=== PATIENT | female | born 1935 | race Caucasian/White ===

== ENCOUNTER 2022-03-09 14:00 | Inpatient (IN) | payer OTHER ==
[2022-03-09 14:14] VITALS: BMI 35.9
[2022-03-09 15:57] LABS: BASO % 0.5 % (0-2.0); HEMATOCRIT 37.8 % (32.4-45.2); HEMOGLOBIN 13.1 GM/dL (10.7-15.3); LYMPH % 7.8 % (8-40); MCH 32.9 pg (25.7-33.7); MCHC 34.6 g/dl (32.0-36.0); MEAN CELL VOLUME 95.1 fl (80-96); MEAN PLT VOLUME 7.5 fl (7.5-11.1); MONO % 10.3 % (3.8-10.2); NEUT % 81.4 % (42.8-82.8); PLATELET COUNT 236 10^3/uL (134-434); RBC 3.97 M/mm3 (3.60-5.2); RDW 15.6 % (11.6-15.6); WHITE BLOOD COUNT 5.3 K/mm3 (4.0-10.0)
[2022-03-09 16:04] LABS: INR 1.04 (0.83-1.09)
[2022-03-09 16:24] LABS: ALBUMIN 2.9 g/dl (3.4-5.0); BLOOD UREA NITROGEN 12.1 mg/dL (7-18); CALCIUM 8.1 mg/dL (8.5-10.1)
[2022-03-09 16:27] LABS: CREATININE 0.9 mg/dL (0.55-1.3); PHOSPHOROUS 3.2 mg/dL (2.5-4.9)
[2022-03-09 16:29] LABS: BILIRUBIN,TOTAL 0.9 mg/dL (0.2-1); TOT PROT 7.1 g/dl (6.4-8.2)
[2022-03-09 19:34] LABS: PH,URINE 6.5 (5.0-8.0); URINE APPEARANCE CLOUDY; URINE BILIRUBIN NEGATIVE (NEGATIVE); URINE COLOR YELLOW; URINE GLUCOSE (UA) NEGATIVE (NEGATIVE); URINE KETONE NEGATIVE (NEGATIVE); URINE LEUK ESTERASE 3+ (NEGATIVE); URINE NITRITE NEGATIVE (NEGATIVE); URINE PROTEIN NEGATIVE (NEGATIVE); URINE UROBILINOGEN 0.2 mg/dL (0.2-1.0)
[2022-03-09 19:44] LABS: EPI CELLS 8 /uL (0-25.1); HYALINE CASTS 0.12 /uL (0-3.1); URINE BACTERIA 529 /uL (0-1359); URINE RBC 121 /uL (0-23.9); URINE WBC 3 /uL (0-25.8)
[2022-03-09] MEDS ORDERED: REMDESIVIR 200 MG in SODIUM CHLORIDE 250 ML IVPB ONE (22:58)
[2022-03-09] MEDS ORDERED: DEXAMETHASONE 4 MG TABLET (FP) PO ONE (23:03)
[2022-03-09] MEDS ORDERED: DEXAMETHASONE 4 MG TABLET (FP) ONE (23:32)
[2022-03-10] MEDS: propRANOLol HCL 10 MG TABLET PO SCH ×3 (06:31→21:04)
[2022-03-10] MEDS: ENOXAPARIN NA (PORCINE) 40 MG/0.4 ML DISP.SYRIN SQ SCH (09:49)
[2022-03-10] MEDS: DEXAMETHASONE SOD PHOSPHATE 10 MG/1 ML VIAL IVPUSH SCH (09:49)
[2022-03-10] MEDS: FLUoxetine HCL 20 MG CAPSULE PO SCH (09:50)
[2022-03-10 10:44] LABS: BASO % 0.8 % (0-2.0); EOS % 0.3 % (0-4.5); HEMATOCRIT 44.3 % (32.4-45.2); HEMOGLOBIN 13.7 GM/dL (10.7-15.3); LYMPH % 9.1 % (8-40); MCH 30.4 pg (25.7-33.7); MCHC 30.9 g/dl (32.0-36.0); MEAN CELL VOLUME 98.4 fl (80-96); MEAN PLT VOLUME 8.6 fl (7.5-11.1); MONO % 7.9 % (3.8-10.2); NEUT % 81.9 % (42.8-82.8); PLATELET COUNT 139 10^3/uL (134-434); RBC 4.51 M/mm3 (3.60-5.2); RDW 15.9 % (11.6-15.6)
[2022-03-10 11:00] LABS: ALBUMIN 2.9 g/dl (3.4-5.0); BLOOD UREA NITROGEN 14.4 mg/dL (7-18); CALCIUM 8.2 mg/dL (8.5-10.1); MAGNESIUM 2.2 mg/dL (1.8-2.4)
[2022-03-10 11:04] LABS: CREATININE 0.7 mg/dL (0.55-1.3)
[2022-03-10 11:06] LABS: BILIRUBIN,TOTAL 0.7 mg/dL (0.2-1); TOT PROT 6.9 g/dl (6.4-8.2)
[2022-03-10 11:08] LABS: PHOSPHOROUS 3.8 mg/dL (2.5-4.9)
[2022-03-10] MEDS ORDERED: CEFTRIAXONE 1 GM in DEXTROSE 5%-WATER - 50 ML IVPB SCH (13:30)
[2022-03-10] MEDS: ATORVASTATIN CA 10 MG TABLET (FP) PO SCH (21:04)
[2022-03-10] MEDS: traZODone HCL 100 MG TABLET (FP) PO SCH (21:04)
[2022-03-10] MEDS: QUEtiapine FUMARATE 25 MG TABLET PO SCH (21:04)
[2022-03-10] MEDS ORDERED: REMDESIVIR 100 MG in SODIUM CHLORIDE 250 ML IVPB ONE (23:00)
[2022-03-10] MEDS ORDERED: DEXAMETHASONE SOD PHOSPHATE 10 MG/1 ML VIAL IVPUSH SCH (23:00)
[2022-03-11] MEDS: propRANOLol HCL 10 MG TABLET PO SCH ×3 (05:49→21:06)
[2022-03-11 09:11] LABS: BASO % 0.1 % (0-2.0); HEMATOCRIT 38.3 % (32.4-45.2); HEMOGLOBIN 12.6 GM/dL (10.7-15.3); LYMPH % 9.4 % (8-40); MCH 31.6 pg (25.7-33.7); MCHC 32.9 g/dl (32.0-36.0); MEAN CELL VOLUME 96.1 fl (80-96); MEAN PLT VOLUME 8.1 fl (7.5-11.1); NEUT % 79.5 % (42.8-82.8); PLATELET COUNT 225 10^3/uL (134-434); RBC 3.99 M/mm3 (3.60-5.2); RDW 15.5 % (11.6-15.6); WHITE BLOOD COUNT 6.9 K/mm3 (4.0-10.0)
[2022-03-11] MEDS: DEXAMETHASONE SOD PHOSPHATE 10 MG/1 ML VIAL IVPUSH SCH (09:15)
[2022-03-11] MEDS: CEFTRIAXONE 1 GM in DEXTROSE 5%-WATER - 50 ML IVPB SCH (09:15)
[2022-03-11] MEDS: FLUoxetine HCL 20 MG CAPSULE PO SCH (09:15)
[2022-03-11] MEDS: ENOXAPARIN NA (PORCINE) 40 MG/0.4 ML DISP.SYRIN SQ SCH (09:15)
[2022-03-11 09:25] LABS: CALCIUM 8.2 mg/dL (8.5-10.1)
[2022-03-11 09:26] LABS: ALBUMIN 2.7 g/dl (3.4-5.0); MAGNESIUM 2.1 mg/dL (1.8-2.4)
[2022-03-11 09:28] LABS: PHOSPHOROUS 3.2 mg/dL (2.5-4.9)
[2022-03-11 09:29] LABS: BILIRUBIN,TOTAL 0.5 mg/dL (0.2-1); CREATININE 0.9 mg/dL (0.55-1.3)
[2022-03-11] MEDS: FAMOTIDINE 10 MG TABLET PO SCH ×2 (09:29→21:06)
[2022-03-11] MEDS: ASPIRIN COATED 81 MG TABLET.EC PO SCH (09:29)
[2022-03-11 09:30] LABS: TOT PROT 6.5 g/dl (6.4-8.2)
[2022-03-11] MEDS: QUEtiapine FUMARATE 25 MG TABLET PO SCH (21:06)
[2022-03-11] MEDS: ATORVASTATIN CA 10 MG TABLET (FP) PO SCH (21:06)
[2022-03-11] MEDS: traZODone HCL 100 MG TABLET (FP) PO SCH (21:06)
[2022-03-11] MEDS: REMDESIVIR 100 MG in SODIUM CHLORIDE 250 ML IVPB SCH (22:47)
[2022-03-12] MEDS: propRANOLol HCL 10 MG TABLET PO SCH ×3 (05:38→21:32)
[2022-03-12 08:56] LABS: BASO % 0.1 % (0-2.0); HEMATOCRIT 38.4 % (32.4-45.2); HEMOGLOBIN 12.8 GM/dL (10.7-15.3); MCH 31.7 pg (25.7-33.7); MCHC 33.4 g/dl (32.0-36.0); MEAN CELL VOLUME 95.1 fl (80-96); MEAN PLT VOLUME 8.2 fl (7.5-11.1); MONO % 10.2 % (3.8-10.2); NEUT % 78.7 % (42.8-82.8); PLATELET COUNT 234 10^3/uL (134-434); RBC 4.04 M/mm3 (3.60-5.2); RDW 15.4 % (11.6-15.6); WHITE BLOOD COUNT 7.7 K/mm3 (4.0-10.0)
[2022-03-12 09:15] LABS: CALCIUM 8.2 mg/dL (8.5-10.1)
[2022-03-12 09:16] LABS: BLOOD UREA NITROGEN 17.2 mg/dL (7-18)
[2022-03-12 09:19] LABS: CREATININE 0.8 mg/dL (0.55-1.3)
[2022-03-12] MEDS: FAMOTIDINE 10 MG TABLET PO SCH ×2 (10:43→21:32)
[2022-03-12] MEDS: FLUoxetine HCL 20 MG CAPSULE PO SCH (10:44)
[2022-03-12] MEDS: CEFTRIAXONE 1 GM in DEXTROSE 5%-WATER - 50 ML IVPB SCH (10:44)
[2022-03-12] MEDS: ASPIRIN COATED 81 MG TABLET.EC PO SCH (10:44)
[2022-03-12] MEDS: DEXAMETHASONE SOD PHOSPHATE 10 MG/1 ML VIAL IVPUSH SCH (10:44)
[2022-03-12] MEDS: ENOXAPARIN NA (PORCINE) 40 MG/0.4 ML DISP.SYRIN SQ SCH (10:44)
[2022-03-12] MEDS: traZODone HCL 100 MG TABLET (FP) PO SCH (21:32)
[2022-03-12] MEDS: QUEtiapine FUMARATE 25 MG TABLET PO SCH (21:32)
[2022-03-12] MEDS: ATORVASTATIN CA 10 MG TABLET (FP) PO SCH (21:32)
[2022-03-12] MEDS: REMDESIVIR 100 MG in SODIUM CHLORIDE 250 ML IVPB SCH (22:08)
[2022-03-13] MEDS: propRANOLol HCL 10 MG TABLET PO SCH ×3 (05:42→21:17)
[2022-03-13] MEDS: FLUoxetine HCL 20 MG CAPSULE PO SCH (09:43)
[2022-03-13] MEDS: ASPIRIN COATED 81 MG TABLET.EC PO SCH (09:43)
[2022-03-13] MEDS: FAMOTIDINE 10 MG TABLET PO SCH ×2 (09:43→21:17)
[2022-03-13] MEDS: ENOXAPARIN NA (PORCINE) 40 MG/0.4 ML DISP.SYRIN SQ SCH (09:43)
[2022-03-13] MEDS: DEXAMETHASONE SOD PHOSPHATE 10 MG/1 ML VIAL IVPUSH SCH (09:44)
[2022-03-13] MEDS: CEFTRIAXONE 1 GM in DEXTROSE 5%-WATER - 50 ML IVPB SCH (09:44)
[2022-03-13] MEDS: POTASSIUM CHLORIDE TABS 20 MEQ TABLET.ER (FP) PO SCH ×2 (12:37→21:17)
[2022-03-13] MEDS: QUEtiapine FUMARATE 25 MG TABLET PO SCH (21:17)
[2022-03-13] MEDS: ATORVASTATIN CA 10 MG TABLET (FP) PO SCH (21:17)
[2022-03-13] MEDS: traZODone HCL 100 MG TABLET (FP) PO SCH (21:17)
[2022-03-13] MEDS: REMDESIVIR 100 MG in SODIUM CHLORIDE 250 ML IVPB SCH (22:48)
[2022-03-14] MEDS: propRANOLol HCL 10 MG TABLET PO SCH ×3 (05:18→21:13)
[2022-03-14] MEDS: FAMOTIDINE 10 MG TABLET PO SCH ×2 (09:23→21:13)
[2022-03-14] MEDS: CEFTRIAXONE 1 GM in DEXTROSE 5%-WATER - 50 ML IVPB SCH (09:23)
[2022-03-14] MEDS: FLUoxetine HCL 20 MG CAPSULE PO SCH (09:23)
[2022-03-14] MEDS: ENOXAPARIN NA (PORCINE) 40 MG/0.4 ML DISP.SYRIN SQ SCH (09:23)
[2022-03-14] MEDS: ASPIRIN COATED 81 MG TABLET.EC PO SCH (09:23)
[2022-03-14] MEDS: DEXAMETHASONE SOD PHOSPHATE 10 MG/1 ML VIAL IVPUSH SCH (09:24)
[2022-03-14] MEDS: traZODone HCL 100 MG TABLET (FP) PO SCH (21:13)
[2022-03-14] MEDS: QUEtiapine FUMARATE 25 MG TABLET PO SCH (21:13)
[2022-03-14] MEDS: ATORVASTATIN CA 10 MG TABLET (FP) PO SCH (21:13)
[2022-03-15] MEDS: propRANOLol HCL 10 MG TABLET PO SCH ×2 (06:14→14:38)
[2022-03-15] MEDS: FLUoxetine HCL 20 MG CAPSULE PO SCH (10:32)
[2022-03-15] MEDS: FAMOTIDINE 10 MG TABLET PO SCH (10:32)
[2022-03-15] MEDS: DEXAMETHASONE SOD PHOSPHATE 10 MG/1 ML VIAL IVPUSH SCH (10:33)
[2022-03-15] MEDS: ASPIRIN COATED 81 MG TABLET.EC PO SCH (10:33)
[2022-03-15] MEDS: ENOXAPARIN NA (PORCINE) 40 MG/0.4 ML DISP.SYRIN SQ SCH (11:28)
[2022-03-15 14:36] VITALS: RESP 18
[2022-03-15 22:07] VITALS: BP 156/82; PULSE 57; TEMP 98
== END 2022-03-15 22:10 | DRG 178 ==
LOC: JER 14:00 → JERBED 16:45 → J4S 03-10 02:58
PROVIDERS: ADMIT Internal Medicine; ATTEND Internal Medicine
PROC: XW033E5 Introduction of Remdesivir Anti-infective into Peripheral Vein, Percutaneous Approach, New Technology Group 5 (ICD-10-PCS; principal; 2022-03-09)
DX: U07.1 COVID-19 (principal); I24.8 Other forms of acute ischemic heart disease; N39.0 Urinary tract infection, site not specified; E78.5 Hyperlipidemia, unspecified; F32.A Depression, unspecified; F41.9 Anxiety disorder, unspecified; H91.90 Unspecified hearing loss, unspecified ear; B96.20 Unspecified Escherichia coli [E. coli] as the cause of diseases classified elsewhere; I11.9 Hypertensive heart disease without heart failure; E66.9 Obesity, unspecified; Z68.35 Body mass index [BMI] 35.0-35.9, adult; I25.10 Atherosclerotic heart disease of native coronary artery without angina pectoris; E87.6 Hypokalemia; R09.02 Hypoxemia
CPT/HCPCS: 0241U-QW; 36415; 70450-TC; 71045-TC-FY; 72125-TC; 80048; 80053; 80061; 81003; 82962; 83036; 83735; 84100; 84443; 84484; 85025; 85610; 85730; 86140; 87086; 87186; 93005; 93010; 94761; 97116-GP; 97161-GP; 99285-25; C9399; J1100

== ENCOUNTER 2022-07-22 20:42 | Inpatient (IN) | payer OTHER, BC ==
[2022-07-22 20:50] VITALS: BMI 23.6
[2022-07-22 22:13] LABS: BASO % 0.2 % (0-2.0); HEMATOCRIT 27.6 % (32.4-45.2); HEMOGLOBIN 9.7 GM/dL (10.7-15.3); INR 1.05 (0.83-1.09); LYMPH % 8.9 % (8-40); MCHC 35.3 g/dl (32.0-36.0); MEAN CELL VOLUME 93.5 fl (80-96); MEAN PLT VOLUME 7.7 fl (7.5-11.1); NEUT % 86.9 % (42.8-82.8); PLATELET COUNT 162 10^3/uL (134-434); PROTHROMBIN TIME (PATIENT) 12.2 SEC (9.7-13.0); RBC 2.95 M/mm3 (3.60-5.2); WHITE BLOOD COUNT 9.8 K/mm3 (4.0-10.0)
[2022-07-22 22:17] LABS: CHLORIDE 94 mmol/L (98-107); SODIUM 135 mmol/L (136-145)
[2022-07-22] MEDS ORDERED: SODIUM CHLORIDE 0.9% 500 ML INFUS.BAG IV ONE ×2 (22:17→22:40)
[2022-07-22 22:19] LABS: CALCIUM 7.2 mg/dL (8.5-10.1)
[2022-07-22 22:20] LABS: ANION GAP 11 MMOL/L (8-16); BLOOD UREA NITROGEN 33.8 mg/dL (7-18); CO2 31 mmol/L (21-32); GLUCOSE,RANDOM 107 mg/dL (74-106); MAGNESIUM 1.6 mg/dL (1.8-2.4)
[2022-07-22 22:23] LABS: CREATININE 1.1 mg/dL (0.55-1.3); SGOT/AST 29 U/L (15-37); SGPT/ALT 12 U/L (13-61)
[2022-07-22 22:24] LABS: TOT PROT 6.1 g/dl (6.4-8.2)
[2022-07-22 22:26] LABS: ALK PHOS 61 U/L (45-117)
[2022-07-22 22:28] LABS: LACTIC ACID 3.1 mmol/L (0.4-2.0); N-TERMINAL BNP 4249.2 pg/ml (5-450)
[2022-07-22 23:49] LABS: EPI CELLS >36 /uL (0-25.1); HYALINE CASTS 137 /uL (0-3.1); URINE APPEARANCE TURBID; URINE BACTERIA >9,000 /uL (0-1359); URINE BILIRUBIN 1+ (NEGATIVE); URINE COLOR DK YELLOW; URINE GLUCOSE (UA) NEGATIVE (NEGATIVE); URINE KETONE TRACE (NEGATIVE); URINE LEUK ESTERASE 3+ (NEGATIVE); URINE NITRITE NEGATIVE (NEGATIVE); URINE PROTEIN 3+ (NEGATIVE); URINE WBC 25201 /uL (0-25.8)
[2022-07-23] MEDS ORDERED: CEFTRIAXONE 1,000 MG in DEXTROSE 5%-WATER - 50 ML IVPB ONE (00:05)
[2022-07-23] MEDS ORDERED: ACETAMINOPHEN 1000 MG/100 ML BAG IVPB ONE (00:15)
[2022-07-23] MEDS ORDERED: MAGNESIUM SULF 50% (8.12 MEQ/2 ML-1 GM VIAL) IVPB ONE (00:19)
[2022-07-23] MEDS ORDERED: ACETAMINOPHEN INJECTION 100 ML IVPB ONE (00:23)
[2022-07-23] MEDS ORDERED: MAGNESIUM SULFATE IN WATER 2 GM/50 ML IVPB IVPB ONE (00:24)
[2022-07-23] MEDS ORDERED: cefTRIAXone SODIUM 1 GM VIAL ONE (00:24)
[2022-07-23 01:00] LABS: CHLORIDE 98 mmol/L (98-107); SODIUM 138 mmol/L (136-145)
[2022-07-23 01:02] LABS: BLOOD UREA NITROGEN 33.2 mg/dL (7-18); CO2 28 mmol/L (21-32); GLUCOSE,RANDOM 120 mg/dL (74-106)
[2022-07-23 01:03] LABS: LACTIC ACID 3.4 mmol/L (0.4-2.0)
[2022-07-23 01:05] LABS: CREATININE 1.1 mg/dL (0.55-1.3)
[2022-07-23] MEDS ORDERED: SODIUM CHLORIDE 0.9% 500 ML INFUS.BAG IV ONE (01:07)
[2022-07-23 01:08] LABS: ANION GAP 13 MMOL/L (8-16); CALCIUM 6.9 mg/dL (8.5-10.1)
[2022-07-23] MEDS: KCL 10 MEQ IVPB 10 MEQ/100 ML INFUS.BAG IVPB SCH ×3 (01:25→04:12)
[2022-07-23] MEDS ORDERED: PIPERACILLIN/TAZOB 3.375 GM 3.375 GM in DEXTROSE 5%-WATER - 50 ML IVPB SCH (03:00)
[2022-07-23] MEDS ORDERED: PIPERACILLIN/TAZOB 3.375 GM 3.375 GM/50 ML BAG IVPB ONE ×3 (05:53→14:55)
[2022-07-23] MEDS: PIPERACILLIN/TAZOB 3.375 GM 3.375 GM in DEXTROSE 5%-WATER - 50 ML IVPB SCH ×3 (06:09→15:05)
[2022-07-23 07:22] LABS: BASO % 0.1 % (0-2.0); HEMATOCRIT 24.9 % (32.4-45.2); HEMOGLOBIN 8.5 GM/dL (10.7-15.3); LYMPH % 8.6 % (8-40); MCH 32.4 pg (25.7-33.7); MCHC 34.3 g/dl (32.0-36.0); MEAN CELL VOLUME 94.6 fl (80-96); MONO % 5.4 % (3.8-10.2); NEUT % 85.9 % (42.8-82.8); PLATELET COUNT 133 10^3/uL (134-434); RBC 2.63 M/mm3 (3.60-5.2); RDW 15.4 % (11.6-15.6); RETICULOCYTES 0.14 % (0.5-1.5); WHITE BLOOD COUNT 9.6 K/mm3 (4.0-10.0)
[2022-07-23 07:41] LABS: CHLORIDE 99 mmol/L (98-107); SODIUM 139 mmol/L (136-145)
[2022-07-23 07:43] LABS: ALBUMIN 1.8 g/dl (3.4-5.0); ANION GAP 12 MMOL/L (8-16); BLOOD UREA NITROGEN 35.4 mg/dL (7-18); CO2 28 mmol/L (21-32); GLUCOSE,RANDOM 137 mg/dL (74-106)
[2022-07-23 07:44] LABS: MAGNESIUM 2.1 mg/dL (1.8-2.4)
[2022-07-23 07:46] LABS: PHOSPHOROUS 1.6 mg/dL (2.5-4.9)
[2022-07-23 07:48] LABS: BILIRUBIN,TOTAL 1.2 mg/dL (0.2-1); CHOLESTEROL 79 mg/dL (50-200); CREATININE 1.3 mg/dL (0.55-1.3); IRON SERUM 96 ug/dL (50-175); SGOT/AST 22 U/L (15-37); SGPT/ALT 11 U/L (13-61)
[2022-07-23 07:49] LABS: ALK PHOS 53 U/L (45-117); TOT PROT 5.3 g/dl (6.4-8.2); TOTAL IRON BINDING CAPACITY 89 ug/dL (250-450)
[2022-07-23 07:50] LABS: LDL CHOLESTEROL (ONLY SJRH) 36 mg/dL (5-100)
[2022-07-23 07:52] LABS: HDL CHOLESTEROL 12 mg/dL (40-60)
[2022-07-23] MEDS ORDERED: POTASSIUM CHLORIDE TABS 20 MEQ TABLET.ER (FP) PO ONE (08:12)
[2022-07-23] MEDS ORDERED: ALBUTEROL SO4 2.5/IPRATROPIUM 0.5 INH SOL 3 ML VIAL.NEB. NEB ONE ×2 (08:15→14:55)
[2022-07-23] MEDS: IPRATROPIUM BR 0.02% 0.5 MG/2.5 ML VIAL.NEB. NEB SCH ×3 (08:24→19:47)
[2022-07-23] MEDS: ALBUTEROL SO4 0.083% IH SOL 2.5 MG/3 ML VIAL.NEB. NEB SCH ×3 (08:24→19:47)
[2022-07-23 08:25] LABS: CALCIUM 6.9 mg/dL (8.5-10.1)
[2022-07-23 09:01] LABS: INR 1.11 (0.83-1.09); PROTHROMBIN TIME (PATIENT) 12.9 SEC (9.7-13.0)
[2022-07-23] MEDS ORDERED: MIRTAZAPINE 15 MG TABLET (FP) PO SCH (10:00)
[2022-07-23] MEDS ORDERED: FLUoxetine HCL 20 MG CAPSULE PO SCH (10:00)
[2022-07-23] MEDS ORDERED: LACTATED RINGERS SOLUTION 1000 ML INFUS.BAG IV ONE ×3 (10:37→12:15)
[2022-07-23] MEDS ORDERED: LACTATED RINGERS SOLUTION 1,000 ML/1,000 ML INFUS.BAG IV SCH ×2 (11:00→17:00)
[2022-07-23] MEDS ORDERED: MIRTAZAPINE 15 MG TABLET (FP) ONE (11:39)
[2022-07-23 11:57] LABS: LACTIC ACID 5.2 mmol/L (0.4-2.0)
[2022-07-23] MEDS ORDERED: VANCOMYCIN 1,000 MG in DEXTROSE 5%-WATER - 250 ML IVPB SCH (12:15)
[2022-07-23 12:29] LABS: ANISOCYTOSIS 0; MACROCYTOSIS 0
[2022-07-23] MEDS ORDERED: VANCOMYCIN 500 MG VIAL (RESTRICTED TO ID ONLY) ONE (12:48)
[2022-07-23] MEDS ORDERED: NAPH,MB-DB/K PH,MBDB POWDER PACKET ONE (13:51)
[2022-07-23] MEDS: NAPH,MB-DB/K PH,MBDB POWDER PACKET PO SCH ×2 (14:10→21:53)
[2022-07-23] MEDS ORDERED: traZODone HCL 50 MG TABLET (FP) ONE (21:17)
[2022-07-23] MEDS ORDERED: INSULIN SLIDING SCALE (NOVOLOG) 1 VIAL SQ SCH (22:00)
[2022-07-23] MEDS ORDERED: traZODone HCL 100 MG TABLET (FP) PO SCH (22:00)
[2022-07-24] MEDS: PIPERACILLIN/TAZOB 3.375 GM 3.375 GM in DEXTROSE 5%-WATER - 50 ML IVPB SCH (01:13)
[2022-07-24] MEDS: LACTATED RINGERS SOLUTION 1,000 ML/1,000 ML INFUS.BAG IV SCH (05:12)
[2022-07-24] MEDS ORDERED: NAPH,MB-DB/K PH,MBDB POWDER PACKET PO SCH (06:00)
[2022-07-24] MEDS ORDERED: LACTATED RINGERS SOLUTION 1,000 ML/1,000 ML INFUS.BAG IV STA ×2 (08:36→11:09)
[2022-07-24] MEDS: ALBUTEROL SO4 0.083% IH SOL 2.5 MG/3 ML VIAL.NEB. NEB SCH ×4 (08:47→20:30)
[2022-07-24] MEDS: IPRATROPIUM BR 0.02% 0.5 MG/2.5 ML VIAL.NEB. NEB SCH ×4 (08:47→20:30)
[2022-07-24] MEDS: FLUoxetine HCL 20 MG CAPSULE PO SCH (09:59)
[2022-07-24] MEDS ORDERED: PIPERACILLIN/TAZOB 3.375 GM 3.375 GM in DEXTROSE 5%-WATER - 50 ML IVPB SCH (10:00)
[2022-07-24 11:18] LABS: HEMATOCRIT 18.7 % (32.4-45.2); MCH 31.9 pg (25.7-33.7); MCHC 33.6 g/dl (32.0-36.0); MEAN PLT VOLUME 7.8 fl (7.5-11.1); RBC 1.97 M/mm3 (3.60-5.2); RDW 15.5 % (11.6-15.6); WHITE BLOOD COUNT 4.4 K/mm3 (4.0-10.0)
[2022-07-24 11:38] LABS: CHLORIDE 104 mmol/L (98-107); SODIUM 139 mmol/L (136-145)
[2022-07-24] MEDS: VASOPRESSIN 40 UNITS in SODIUM CHLORIDE 100 ML IVPB SCH (11:40)
[2022-07-24 11:41] LABS: BLOOD UREA NITROGEN 34.6 mg/dL (7-18); CO2 17 mmol/L (21-32); GLUCOSE,RANDOM 66 mg/dL (74-106)
[2022-07-24 11:43] LABS: CREATININE 1.5 mg/dL (0.55-1.3)
[2022-07-24 11:44] LABS: PHOSPHOROUS 1.8 mg/dL (2.5-4.9); SGOT/AST 44 U/L (15-37); SGPT/ALT 13 U/L (13-61)
[2022-07-24 11:45] LABS: BILIRUBIN,TOTAL 0.7 mg/dL (0.2-1); TOT PROT 3.4 g/dl (6.4-8.2)
[2022-07-24 11:46] LABS: ALK PHOS 34 U/L (45-117)
[2022-07-24 11:47] LABS: ALBUMIN 1.1 g/dl (3.4-5.0); ANION GAP 18 MMOL/L (8-16); CALCIUM 6.6 mg/dL (8.5-10.1); LACTIC ACID 13.1 mmol/L (0.4-2.0)
[2022-07-24] MEDS: NOREPINEPHRINE BITARTRATE/D5W 8 MG/250 ML BAG IVPB SCH ×2 (11:50→20:30)
[2022-07-24 12:04] LABS: ANISOCYTOSIS 0; MACROCYTOSIS 0
[2022-07-24] MEDS ORDERED: CALCIUM GLUCONATE 10% - 1,000 MG/10 ML VIAL IVPB ONE (12:32)
[2022-07-24] MEDS ORDERED: D5-LR+20 MEQ KCL - 20 MEQ/1,000 ML INFUS.BAG IV SCH (12:45)
[2022-07-24] MEDS ORDERED: VANCOMYCIN/WATER FOR INJ (PEG) 1,000 MG/200 ML BAG IVPB SCH ×2 (13:00)
[2022-07-24 13:02] LABS: PLATELET COUNT 41 10^3/uL (134-434)
[2022-07-24] MEDS ORDERED: POTASSIUM CHLORIDE 20 MEQ PREMIX IVPB 100 ML IVPB ONE (13:30)
[2022-07-24] MEDS: FENTANYL IVPB 500 MCG/100 ML BAG IVPB SCH ×2 (13:30→21:42)
[2022-07-24] MEDS: VANCOMYCIN/WATER FOR INJ (PEG) 1,000 MG/200 ML BAG IVPB SCH (14:23)
[2022-07-24] MEDS: PANTOPRAZOLE SODIUM 40 MG VIAL IVPUSH SCH (14:23)
[2022-07-24] MEDS: MIDAZOLAM IN 0.9 % SOD.CHLORID 100 MG/100 ML PLAST..BAG IVPB SCH (14:29)
[2022-07-24] MEDS: MUPIROCIN 2% TOPICAL OINTMENT FOR DECOLONIZATION NS SCH ×2 (14:30→21:19)
[2022-07-24 15:05] LABS: HEMOGLOBIN 6.3 GM/dL (10.7-15.3)
[2022-07-24] MEDS: POTASSIUM CHLORIDE 20 MEQ PREMIX IVPB 100 ML IVPB SCH ×2 (15:11→15:40)
[2022-07-24 15:26] LABS: ARTERIAL BLD GAS O2 SATURATION 99.7 % (95-98); ARTERIAL BLOOD GAS BASE EXCESS -9.4 mmol/L (-2-2); ARTERIAL BLOOD GAS PO2 303.3 mmHg (80-100); ARTERIAL BLOOD GAS pH 7.373 (7.350-7.450)
[2022-07-24 15:30] LABS: ALLENS TEST POSITIVE; VENT MODE A/C; VENT RATE 14
[2022-07-24] MEDS: MEROPENEM 1 GM in DEXTROSE 5%-WATER 100 ML IVPB SCH (18:30)
[2022-07-24 18:36] LABS: CALCIUM 7.1 mg/dL (8.5-10.1)
[2022-07-24 18:37] LABS: ALBUMIN 1.3 g/dl (3.4-5.0); BLOOD UREA NITROGEN 33.6 mg/dL (7-18)
[2022-07-24 18:40] LABS: CREATININE 1.6 mg/dL (0.55-1.3)
[2022-07-24 18:41] LABS: BILIRUBIN,TOTAL 0.8 mg/dL (0.2-1); TOT PROT 3.9 g/dl (6.4-8.2)
[2022-07-24] MEDS ORDERED: traZODone HCL 50 MG TABLET (FP) ONE (21:01)
[2022-07-24] MEDS: CHLORHEXIDINE GLUCONATE 4% CLEANSER FOR DECOLONIZATION TP SCH (21:19)
[2022-07-24] MEDS ORDERED: MIRTAZAPINE 15 MG TABLET (FP) PO SCH (22:00)
[2022-07-24] MEDS ORDERED: MUPIROCIN 2% TOPICAL OINTMENT FOR DECOLONIZATION NS SCH (22:00)
[2022-07-24] MEDS ORDERED: CHLORHEXIDINE GLUCONATE 4% CLEANSER FOR DECOLONIZATION TP SCH (22:00)
[2022-07-24] MEDS ORDERED: traZODone HCL 100 MG TABLET (FP) PO SCH (22:00)
[2022-07-25] LABS: BASO % 0.1 % (0-2.0); HEMATOCRIT 30.3 % (32.4-45.2); HEMOGLOBIN 10.1 GM/dL (10.7-15.3); LYMPH % 9.8 % (8-40); MCH 30.3 pg (25.7-33.7); MCHC 33.4 g/dl (32.0-36.0); MEAN CELL VOLUME 90.8 fl (80-96); MEAN PLT VOLUME 8.1 fl (7.5-11.1); MONO % 1.3 % (3.8-10.2); NEUT % 88.8 % (42.8-82.8); RBC 3.34 M/mm3 (3.60-5.2); RDW 17.4 % (11.6-15.6); WHITE BLOOD COUNT 9.4 K/mm3 (4.0-10.0)
[2022-07-25 00:10] LABS: PLATELET COUNT 33 10^3/uL (134-434)
[2022-07-25 00:50] LABS: CHLORIDE 103 mmol/L (98-107); SODIUM 136 mmol/L (136-145)
[2022-07-25 00:53] LABS: ALBUMIN 1.4 g/dl (3.4-5.0); ANION GAP 19 MMOL/L (8-16); BLOOD UREA NITROGEN 33.5 mg/dL (7-18); CO2 14 mmol/L (21-32); GLUCOSE,RANDOM 234 mg/dL (74-106)
[2022-07-25 00:54] LABS: ANISOCYTOSIS 2+; MACROCYTOSIS 0; OVALOCYTE 1+; TARGET CELLS 1+; TEAR DROP CELLS 1+
[2022-07-25 00:56] LABS: CREATININE 1.7 mg/dL (0.55-1.3); SGOT/AST 114 U/L (15-37); SGPT/ALT 25 U/L (13-61)
[2022-07-25 00:58] LABS: BILIRUBIN,TOTAL 1.1 mg/dL (0.2-1); TOT PROT 4.2 g/dl (6.4-8.2)
[2022-07-25 00:59] LABS: ALK PHOS 47 U/L (45-117)
[2022-07-25 01:20] LABS: CALCIUM 6.9 mg/dL (8.5-10.1)
[2022-07-25] MEDS: LACTATED RINGERS SOLUTION 1,000 ML/1,000 ML INFUS.BAG IV SCH (05:19)
[2022-07-25] MEDS: MEROPENEM 1 GM in DEXTROSE 5%-WATER 100 ML IVPB SCH ×2 (05:19→18:20)
[2022-07-25] MEDS: NOREPINEPHRINE BITARTRATE/D5W 8 MG/250 ML BAG IVPB SCH ×3 (05:20→21:03)
[2022-07-25] MEDS ORDERED: SODIUM CHLORIDE 0.9% 500 ML INFUS.BAG IV ONE (06:31)
[2022-07-25 07:04] LABS: BASO % 0.1 % (0-2.0); EOS % 0.1 % (0-4.5); HEMOGLOBIN 9.6 GM/dL (10.7-15.3); MCH 31.1 pg (25.7-33.7); MCHC 34.3 g/dl (32.0-36.0); MEAN CELL VOLUME 90.6 fl (80-96); MEAN PLT VOLUME 8.4 fl (7.5-11.1); MONO % 1.3 % (3.8-10.2); NEUT % 84.5 % (42.8-82.8); RBC 3.09 M/mm3 (3.60-5.2); RDW 18.8 % (11.6-15.6); WHITE BLOOD COUNT 10.9 K/mm3 (4.0-10.0)
[2022-07-25 07:25] LABS: CHLORIDE 105 mmol/L (98-107); SODIUM 137 mmol/L (136-145)
[2022-07-25 07:28] LABS: ALBUMIN 1.3 g/dl (3.4-5.0); ANION GAP 15 MMOL/L (8-16); BLOOD UREA NITROGEN 33.4 mg/dL (7-18); CO2 16 mmol/L (21-32); GLUCOSE,RANDOM 289 mg/dL (74-106); MAGNESIUM 1.5 mg/dL (1.8-2.4)
[2022-07-25 07:29] LABS: PLATELET COUNT 24 10^3/uL (134-434)
[2022-07-25 07:31] LABS: CREATININE 1.8 mg/dL (0.55-1.3); PHOSPHOROUS 1.6 mg/dL (2.5-4.9); SGOT/AST 110 U/L (15-37); SGPT/ALT 26 U/L (13-61)
[2022-07-25 07:34] LABS: ALK PHOS 45 U/L (45-117)
[2022-07-25 07:52] LABS: LACTIC ACID 10.2 mmol/L (0.4-2.0)
[2022-07-25] MEDS: IPRATROPIUM BR 0.02% 0.5 MG/2.5 ML VIAL.NEB. NEB SCH ×3 (08:05→20:57)
[2022-07-25] MEDS: ALBUTEROL SO4 0.083% IH SOL 2.5 MG/3 ML VIAL.NEB. NEB SCH ×3 (08:05→20:57)
[2022-07-25 08:07] LABS: CALCIUM 6.5 mg/dL (8.5-10.1)
[2022-07-25 09:07] LABS: INR 1.38 (0.83-1.09); PROTHROMBIN TIME (PATIENT) 15.9 SEC (9.7-13.0)
[2022-07-25] MEDS ORDERED: FENTANYL NS IVPB 500 MCG/100 ML BAG IVPB ONE (09:54)
[2022-07-25] MEDS: PANTOPRAZOLE SODIUM 40 MG VIAL IVPUSH SCH (10:09)
[2022-07-25] MEDS: MUPIROCIN 2% TOPICAL OINTMENT FOR DECOLONIZATION NS SCH ×2 (10:09→21:01)
[2022-07-25] MEDS: DEXTROSE 5%-LACTATED RINGERS 1,000 ML IV SCH ×2 (10:24→21:11)
[2022-07-25 10:28] LABS: ANISOCYTOSIS 0; HELMET CELLS 0; HOWELL-JOLLY BODIES 0; MACROCYTOSIS 0; OVALOCYTE 0; ROULEAU 0; SICKELED CELLS 0; TARGET CELLS 0; TEAR DROP CELLS 0; TOXIC GRANULATION 0
[2022-07-25] MEDS: FLUoxetine HCL 20 MG CAPSULE PO SCH (10:59)
[2022-07-25] MEDS: FENTANYL IVPB 500 MCG/100 ML BAG IVPB SCH ×2 (14:12→21:03)
[2022-07-25] MEDS: MIDAZOLAM IN 0.9 % SOD.CHLORID 100 MG/100 ML PLAST..BAG IVPB SCH (15:59)
[2022-07-25] MEDS: VANCOMYCIN/WATER FOR INJ (PEG) 1,000 MG/200 ML BAG IVPB SCH (16:59)
[2022-07-25] MEDS ORDERED: MAGNESIUM SULF 50% (8.12 MEQ/2 ML-1 GM VIAL) IVPB ONE (17:45)
[2022-07-25] MEDS ORDERED: traZODone HCL 50 MG TABLET (FP) ONE (20:47)
[2022-07-25] MEDS: CHLORHEXIDINE GLUCONATE 4% CLEANSER FOR DECOLONIZATION TP SCH (21:01)
[2022-07-25] MEDS: NAPH,MB-DB/K PH,MBDB POWDER PACKET PO SCH (21:02)
[2022-07-26] MEDS: MEROPENEM 1 GM in DEXTROSE 5%-WATER 100 ML IVPB SCH (05:24)
[2022-07-26] MEDS: LACTATED RINGERS SOLUTION 1,000 ML/1,000 ML INFUS.BAG IV SCH (05:25)
[2022-07-26] MEDS: NOREPINEPHRINE BITARTRATE/D5W 8 MG/250 ML BAG IVPB SCH ×3 (05:29→19:00)
[2022-07-26 07:09] LABS: CHLORIDE 103 mmol/L (98-107); SODIUM 132 mmol/L (136-145)
[2022-07-26 07:14] LABS: ALBUMIN 1.1 g/dl (3.4-5.0)
[2022-07-26 07:15] LABS: ANION GAP 10 MMOL/L (8-16); BLOOD UREA NITROGEN 35.8 mg/dL (7-18); CO2 19 mmol/L (21-32); GLUCOSE,RANDOM 222 mg/dL (74-106); MAGNESIUM 1.8 mg/dL (1.8-2.4)
[2022-07-26 07:18] LABS: SGOT/AST 61 U/L (15-37); SGPT/ALT 22 U/L (13-61)
[2022-07-26 07:19] LABS: BILIRUBIN,TOTAL 0.7 mg/dL (0.2-1)
[2022-07-26 07:20] LABS: ALK PHOS 48 U/L (45-117); CALCIUM 6.5 mg/dL (8.5-10.1); PHOSPHOROUS 1.2 mg/dL (2.5-4.9); TOT PROT 3.6 g/dl (6.4-8.2)
[2022-07-26] MEDS: FENTANYL IVPB 500 MCG/100 ML BAG IVPB SCH ×3 (07:34→21:23)
[2022-07-26] MEDS: ALBUTEROL SO4 0.083% IH SOL 2.5 MG/3 ML VIAL.NEB. NEB SCH ×3 (08:15→20:15)
[2022-07-26] MEDS: IPRATROPIUM BR 0.02% 0.5 MG/2.5 ML VIAL.NEB. NEB SCH ×3 (08:15→20:15)
[2022-07-26 08:18] LABS: HEMATOCRIT 25.8 % (32.4-45.2); HEMOGLOBIN 8.5 GM/dL (10.7-15.3); MCH 29.7 pg (25.7-33.7); MEAN CELL VOLUME 90.1 fl (80-96); MEAN PLT VOLUME 10.8 fl (7.5-11.1); RBC 2.86 M/mm3 (3.60-5.2); RDW 18.7 % (11.6-15.6); WHITE BLOOD COUNT 7.8 K/mm3 (4.0-10.0)
[2022-07-26 08:27] LABS: PLATELET COUNT 4 10^3/uL (134-434)
[2022-07-26 09:20] LABS: INR 1.15 (0.83-1.09); PROTHROMBIN TIME (PATIENT) 13.3 SEC (9.7-13.0)
[2022-07-26] MEDS ORDERED: POTASSIUM PHOSPHATE 30 MM in SODIUM CHLORIDE 250 ML IVPB ONE (10:00)
[2022-07-26] MEDS: MUPIROCIN 2% TOPICAL OINTMENT FOR DECOLONIZATION NS SCH ×2 (10:17→21:23)
[2022-07-26] MEDS: DEXTROSE 5%-LACTATED RINGERS 1,000 ML IV SCH ×2 (10:17→19:00)
[2022-07-26] MEDS: NAPH,MB-DB/K PH,MBDB POWDER PACKET PO SCH ×2 (10:18→21:23)
[2022-07-26] MEDS: PANTOPRAZOLE SODIUM 40 MG VIAL IVPUSH SCH (10:20)
[2022-07-26 10:28] LABS: ANISOCYTOSIS 0; MACROCYTOSIS 0
[2022-07-26] MEDS: NAFCILLIN - 2 GM in DEXTROSE 5%-WATER 100 ML IVPB SCH ×3 (16:56→21:23)
[2022-07-26] MEDS: ERTAPENEM SODIUM 0.5 GM in SODIUM CHLORIDE 50 ML IVPB SCH (17:39)
[2022-07-26 18:01] LABS: HEMATOCRIT 20.5 % (32.4-45.2); MCH 30.7 pg (25.7-33.7); MCHC 33.5 g/dl (32.0-36.0); MEAN CELL VOLUME 91.5 fl (80-96); MEAN PLT VOLUME 6.7 fl (7.5-11.1); PLATELET COUNT 90 10^3/uL (134-434); RBC 2.25 M/mm3 (3.60-5.2); RDW 18.7 % (11.6-15.6); WHITE BLOOD COUNT 6.4 K/mm3 (4.0-10.0)
[2022-07-26 18:13] LABS: HEMOGLOBIN 6.9 GM/dL (10.7-15.3)
[2022-07-26 20:00] LABS: LDH 496 U/L (84-246)
[2022-07-26] MEDS: MIDAZOLAM IN 0.9 % SOD.CHLORID 100 MG/100 ML PLAST..BAG IVPB SCH (20:14)
[2022-07-26] MEDS: CHLORHEXIDINE GLUCONATE 4% CLEANSER FOR DECOLONIZATION TP SCH (21:23)
[2022-07-27 00:48] LABS: HEMATOCRIT 30.7 % (32.4-45.2); HEMOGLOBIN 10.3 GM/dL (10.7-15.3); MCHC 33.6 g/dl (32.0-36.0); MEAN CELL VOLUME 89.4 fl (80-96); MEAN PLT VOLUME 7.4 fl (7.5-11.1); PLATELET COUNT 61 10^3/uL (134-434); RBC 3.43 M/mm3 (3.60-5.2); RDW 17.2 % (11.6-15.6); WHITE BLOOD COUNT 6.8 K/mm3 (4.0-10.0)
[2022-07-27] MEDS: NAFCILLIN - 2 GM in DEXTROSE 5%-WATER 100 ML IVPB SCH ×6 (02:51→21:23)
[2022-07-27 03:07] LABS: ANISOCYTOSIS 2+; MACROCYTOSIS 2+; TEAR DROP CELLS 1+
[2022-07-27 06:36] LABS: HEMATOCRIT 32.3 % (32.4-45.2); MCH 30.9 pg (25.7-33.7); MEAN CELL VOLUME 90.9 fl (80-96); MEAN PLT VOLUME 7.9 fl (7.5-11.1); PLATELET COUNT 48 10^3/uL (134-434); RBC 3.55 M/mm3 (3.60-5.2); RDW 17.3 % (11.6-15.6); WHITE BLOOD COUNT 6.7 K/mm3 (4.0-10.0)
[2022-07-27 06:41] LABS: INR 1.11 (0.83-1.09); PROTHROMBIN TIME (PATIENT) 12.9 SEC (9.7-13.0)
[2022-07-27] MEDS: DEXTROSE 5%-LACTATED RINGERS 1,000 ML IV SCH ×2 (06:42→17:45)
[2022-07-27 06:43] LABS: ACTIVATED PTT 36.2 SECONDS (25.2-36.5)
[2022-07-27 06:53] LABS: CHLORIDE 102 mmol/L (98-107); SODIUM 134 mmol/L (136-145)
[2022-07-27 06:57] LABS: ANION GAP 12 MMOL/L (8-16); BLOOD UREA NITROGEN 38.2 mg/dL (7-18); CO2 19 mmol/L (21-32); GLUCOSE,RANDOM 124 mg/dL (74-106)
[2022-07-27 06:59] LABS: MAGNESIUM 1.4 mg/dL (1.8-2.4)
[2022-07-27 07:00] LABS: BILIRUBIN,TOTAL 5.7 mg/dL (0.2-1); CREATININE 2.1 mg/dL (0.55-1.3); PHOSPHOROUS 3.2 mg/dL (2.5-4.9); SGOT/AST 50 U/L (15-37); SGPT/ALT 22 U/L (13-61)
[2022-07-27 07:01] LABS: TOT PROT 4.2 g/dl (6.4-8.2)
[2022-07-27 07:02] LABS: ALK PHOS 71 U/L (45-117)
[2022-07-27] MEDS ORDERED: MAGNESIUM 2GM/50ML STERILE WATER IVPB IVPB ONE (07:14)
[2022-07-27 07:19] LABS: ALBUMIN 1.5 g/dl (3.4-5.0); CALCIUM 6.3 mg/dL (8.5-10.1); LACTIC ACID 6.9 mmol/L (0.4-2.0)
[2022-07-27 07:49] LABS: LDH 524 U/L (84-246)
[2022-07-27] MEDS: IPRATROPIUM BR 0.02% 0.5 MG/2.5 ML VIAL.NEB. NEB SCH ×3 (08:04→20:30)
[2022-07-27] MEDS: ALBUTEROL SO4 0.083% IH SOL 2.5 MG/3 ML VIAL.NEB. NEB SCH ×3 (08:05→20:30)
[2022-07-27 08:52] LABS: ANISOCYTOSIS 0; MACROCYTOSIS 0
[2022-07-27] MEDS: PANTOPRAZOLE SODIUM 40 MG VIAL IVPUSH SCH (09:11)
[2022-07-27] MEDS: FENTANYL IVPB 500 MCG/100 ML BAG IVPB SCH ×2 (09:12→17:45)
[2022-07-27] MEDS: MUPIROCIN 2% TOPICAL OINTMENT FOR DECOLONIZATION NS SCH ×2 (09:12→21:22)
[2022-07-27] MEDS: NAPH,MB-DB/K PH,MBDB POWDER PACKET PO SCH (09:12)
[2022-07-27] MEDS ORDERED: ZINC OXIDE/PETROLATUM,WHITE 1 APPLIC OINT...G. TP PRN ×2 (09:43→11:03)
[2022-07-27 10:41] LABS: BILIRUBIN,DIRECT 4.5 mg/dL (0.0-0.2)
[2022-07-27] MEDS: ERTAPENEM SODIUM 0.5 GM in SODIUM CHLORIDE 50 ML IVPB SCH (10:41)
[2022-07-27] MEDS: NOREPINEPHRINE BITARTRATE/D5W 8 MG/250 ML BAG IVPB SCH ×3 (17:24→23:07)
[2022-07-27] MEDS: MIDAZOLAM IN 0.9 % SOD.CHLORID 100 MG/100 ML PLAST..BAG IVPB SCH (17:45)
[2022-07-27] MEDS: CHLORHEXIDINE GLUCONATE 4% CLEANSER FOR DECOLONIZATION TP SCH (21:23)
[2022-07-28] MEDS: NAFCILLIN - 2 GM in DEXTROSE 5%-WATER 100 ML IVPB SCH ×6 (02:25→21:25)
[2022-07-28] MEDS: DEXTROSE 5%-LACTATED RINGERS 1,000 ML IV SCH ×2 (02:26→21:29)
[2022-07-28] MEDS: NOREPINEPHRINE BITARTRATE/D5W 8 MG/250 ML BAG IVPB SCH ×3 (05:10→23:58)
[2022-07-28] MEDS: FENTANYL IVPB 500 MCG/100 ML BAG IVPB SCH (05:11)
[2022-07-28 07:17] LABS: HEMATOCRIT 34.6 % (32.4-45.2); HEMOGLOBIN 11.4 GM/dL (10.7-15.3); MCH 29.6 pg (25.7-33.7); MCHC 32.9 g/dl (32.0-36.0); MEAN CELL VOLUME 90.2 fl (80-96); MEAN PLT VOLUME 9.2 fl (7.5-11.1); RBC 3.84 M/mm3 (3.60-5.2); RDW 18.4 % (11.6-15.6); WHITE BLOOD COUNT 9.6 K/mm3 (4.0-10.0)
[2022-07-28 07:18] LABS: PLATELET COUNT 7 10^3/uL (134-434)
[2022-07-28 07:24] LABS: CHLORIDE 98 mmol/L (98-107); SODIUM 129 mmol/L (136-145)
[2022-07-28 07:31] LABS: LACTIC ACID 10.2 mmol/L (0.4-2.0)
[2022-07-28 07:33] LABS: ALBUMIN 1.2 g/dl (3.4-5.0); ANION GAP 17 MMOL/L (8-16); CO2 14 mmol/L (21-32); GLUCOSE,RANDOM 164 mg/dL (74-106)
[2022-07-28 07:34] LABS: BLOOD UREA NITROGEN 38.3 mg/dL (7-18)
[2022-07-28 07:36] LABS: CREATININE 2.3 mg/dL (0.55-1.3); SGOT/AST 55 U/L (15-37)
[2022-07-28 07:37] LABS: BILIRUBIN,TOTAL 8.4 mg/dL (0.2-1); PHOSPHOROUS 4.7 mg/dL (2.5-4.9); SGPT/ALT 17 U/L (13-61)
[2022-07-28 07:39] LABS: ALK PHOS 99 U/L (45-117)
[2022-07-28 07:46] LABS: CALCIUM 6.3 mg/dL (8.5-10.1)
[2022-07-28] MEDS: ALBUTEROL SO4 0.083% IH SOL 2.5 MG/3 ML VIAL.NEB. NEB SCH ×3 (08:20→20:27)
[2022-07-28] MEDS: IPRATROPIUM BR 0.02% 0.5 MG/2.5 ML VIAL.NEB. NEB SCH ×3 (08:20→20:28)
[2022-07-28] MEDS ORDERED: CALCIUM GLUC IN NACL, ISO-OSM 1 GM/50 ML BAG IVPB ONE (09:06)
[2022-07-28] MEDS: PANTOPRAZOLE SODIUM 40 MG VIAL IVPUSH SCH (09:06)
[2022-07-28] MEDS: ERTAPENEM SODIUM 0.5 GM in SODIUM CHLORIDE 50 ML IVPB SCH (09:06)
[2022-07-28 09:11] LABS: ANISOCYTOSIS 0; HELMET CELLS 0; HOWELL-JOLLY BODIES 0; MACROCYTOSIS 0; OVALOCYTE 0; ROULEAU 0; SICKELED CELLS 0; TARGET CELLS 0; TEAR DROP CELLS 0; TOXIC GRANULATION 0
[2022-07-28] MEDS: MUPIROCIN 2% TOPICAL OINTMENT FOR DECOLONIZATION NS SCH ×2 (11:23→21:25)
[2022-07-28] MEDS: VASOPRESSIN 40 UNITS in SODIUM CHLORIDE 100 ML IVPB SCH (11:57)
[2022-07-28] MEDS: FENTANYL NS IVPB 500 MCG/100 ML BAG IVPB SCH ×2 (16:03→21:25)
[2022-07-28] MEDS: HYDROCORTISONE SOD SUCCINATE 100 MG/2 ML VIAL IVPUSH SCH (20:23)
[2022-07-28] MEDS: CHLORHEXIDINE GLUCONATE 4% CLEANSER FOR DECOLONIZATION TP SCH (21:26)
[2022-07-29] MEDS: NAFCILLIN - 2 GM in DEXTROSE 5%-WATER 100 ML IVPB SCH ×4 (02:24→13:13)
[2022-07-29] MEDS: HYDROCORTISONE SOD SUCCINATE 100 MG/2 ML VIAL IVPUSH SCH ×2 (03:21→09:21)
[2022-07-29] MEDS: NOREPINEPHRINE BITARTRATE/D5W 8 MG/250 ML BAG IVPB SCH (04:50)
[2022-07-29] MEDS: VASOPRESSIN 40 UNITS in SODIUM CHLORIDE 100 ML IVPB SCH (05:43)
[2022-07-29 06:36] LABS: ARTERIAL BLD GAS O2 SATURATION 97.1 % (95-98); ARTERIAL BLOOD GAS BASE EXCESS -24.7 mmol/L (-2-2); ARTERIAL BLOOD GAS PO2 141.5 mmHg (80-100)
[2022-07-29 06:39] LABS: ALLENS TEST POSITIVE; VENT MODE A/C
[2022-07-29 06:40] LABS: VENT RATE 22
[2022-07-29] MEDS: MIDAZOLAM IN 0.9 % SOD.CHLORID 100 MG/100 ML PLAST..BAG IVPB SCH (06:41)
[2022-07-29 06:43] LABS: ARTERIAL BLOOD GAS pH 6.946 (7.350-7.450)
[2022-07-29 07:39] LABS: HEMATOCRIT 26.6 % (32.4-45.2); HEMOGLOBIN 8.6 GM/dL (10.7-15.3); MCH 30.9 pg (25.7-33.7); MCHC 32.5 g/dl (32.0-36.0); MEAN CELL VOLUME 94.9 fl (80-96); MEAN PLT VOLUME 8.3 fl (7.5-11.1); RDW 19.1 % (11.6-15.6)
[2022-07-29 07:43] LABS: CHLORIDE 96 mmol/L (98-107); SODIUM 125 mmol/L (136-145)
[2022-07-29 07:45] LABS: BLOOD UREA NITROGEN 38.3 mg/dL (7-18); CO2 11 mmol/L (21-32); GLUCOSE,RANDOM 205 mg/dL (74-106); MAGNESIUM 1.9 mg/dL (1.8-2.4)
[2022-07-29 07:46] LABS: PLATELET COUNT 21 10^3/uL (134-434)
[2022-07-29 07:48] LABS: CREATININE 2.5 mg/dL (0.55-1.3); PHOSPHOROUS 6.6 mg/dL (2.5-4.9); SGOT/AST 77 U/L (15-37); SGPT/ALT 10 U/L (13-61)
[2022-07-29 07:50] LABS: BILIRUBIN,TOTAL 7.1 mg/dL (0.2-1); TOT PROT 3.2 g/dl (6.4-8.2)
[2022-07-29 07:51] LABS: ALK PHOS 90 U/L (45-117)
[2022-07-29] MEDS: IPRATROPIUM BR 0.02% 0.5 MG/2.5 ML VIAL.NEB. NEB SCH (08:00)
[2022-07-29] MEDS: ALBUTEROL SO4 0.083% IH SOL 2.5 MG/3 ML VIAL.NEB. NEB SCH (08:00)
[2022-07-29 08:11] LABS: LACTIC ACID 13.6 mmol/L (0.4-2.0)
[2022-07-29 08:18] VITALS: RESP 22
[2022-07-29] MEDS: DEXTROSE 5%-LACTATED RINGERS 1,000 ML IV SCH (08:24)
[2022-07-29 08:34] LABS: ANION GAP 18 MMOL/L (8-16)
[2022-07-29 08:36] LABS: ANISOCYTOSIS 2+; MACROCYTOSIS 0
[2022-07-29] MEDS: ERTAPENEM SODIUM 0.5 GM in SODIUM CHLORIDE 50 ML IVPB SCH (09:21)
[2022-07-29] MEDS: PANTOPRAZOLE SODIUM 40 MG VIAL IVPUSH SCH (09:21)
[2022-07-29] MEDS: MUPIROCIN 2% TOPICAL OINTMENT FOR DECOLONIZATION NS SCH (09:21)
[2022-07-29] MEDS ORDERED: CALCIUM GLUC IN NACL, ISO-OSM 1 GM/50 ML BAG IVPB ONE (09:27)
[2022-07-29] MEDS ORDERED: SODIUM BICARBONATE 8.4% 50 MEQ/50 ML DISP.SYRIN IVPUSH ONE (09:28)
[2022-07-29] MEDS ORDERED: DEXTROSE 50%-WATER - 25 GM/50 ML VIAL IVPUSH ONE (09:38)
[2022-07-29] MEDS ORDERED: INSULIN REGULAR HUMAN 100 UNITS/ML *VIAL IVPUSH ONE (09:39)
[2022-07-29] MEDS ORDERED: DEXTROSE 50%-WATER 25 GM/50 ML DISP.SYRIN ONE (09:56)
[2022-07-29] MEDS ORDERED: SODIUM ZIRCONIUM CYCLOSILICATE (LOKELMA) 5 GM PACKET NGT ONE (10:00)
[2022-07-29] MEDS ORDERED: SODIUM BICARBONATE 8.4% 50 MEQ/50 ML DISP.SYRIN IVPUSH SCH (13:30)
[2022-07-29 13:45] VITALS: BP 65/33; PULSE 64; TEMP 96.5
== END 2022-07-29 14:00 | disposition expired | DRG 870 ==
LOC: JER 20:42 → JERBED 07-23 00:22 → JICU 07-23 18:05 → J8W 07-24 03:16 → JICU 07-24 11:32
PROVIDERS: ADMIT Internal Medicine; ATTEND Internal Medicine
PROC: 02HV33Z Insertion of Infusion Device into Superior Vena Cava, Percutaneous Approach (ICD-10-PCS; principal; 2022-07-24)
PROC: 5A1955Z Respiratory Ventilation, Greater than 96 Consecutive Hours (ICD-10-PCS; 2022-07-24)
PROC: B548ZZA Ultrasonography of Superior Vena Cava, Guidance (ICD-10-PCS; 2022-07-24)
PROC: 0BH17EZ Insertion of Endotracheal Airway into Trachea, Via Natural or Artificial Opening (ICD-10-PCS; 2022-07-24)
DX: A41.02 Sepsis due to Methicillin resistant Staphylococcus aureus (principal); I50.33 Acute on chronic diastolic (congestive) heart failure; J96.21 Acute and chronic respiratory failure with hypoxia; R65.21 Severe sepsis with septic shock; J18.9 Pneumonia, unspecified organism; J98.11 Atelectasis; N39.0 Urinary tract infection, site not specified; N17.9 Acute kidney failure, unspecified; I24.8 Other forms of acute ischemic heart disease; E87.20 Acidosis, unspecified; K57.92 Diverticulitis of intestine, part unspecified, without perforation or abscess without bleeding; I13.0 Hypertensive heart and chronic kidney disease with heart failure and stage 1 through stage 4 chronic kidney disease, or unspecified chronic kidney disease; E78.5 Hyperlipidemia, unspecified; F41.9 Anxiety disorder, unspecified; F32.A Depression, unspecified; E05.90 Thyrotoxicosis, unspecified without thyrotoxic crisis or storm; Z99.81 Dependence on supplemental oxygen; Z86.16 Personal history of COVID-19; D64.9 Anemia, unspecified; E87.6 Hypokalemia; E83.42 Hypomagnesemia; Z53.9 Procedure and treatment not carried out, unspecified reason; R26.89 Other abnormalities of gait and mobility; D69.6 Thrombocytopenia, unspecified; E27.8 Other specified disorders of adrenal gland; R62.7 Adult failure to thrive; J44.9 Chronic obstructive pulmonary disease, unspecified; N18.9 Chronic kidney disease, unspecified
CPT/HCPCS: 0241U-QW; 31500; 36415; 36430; 36511; 36600; 70450-TC; 71045-TC-FY; 71250-TC; 74176-TC; 76775-TC; 76942; 80048; 80053; 80061; 81003; 82024; 82248; 82272; 82530; 82533; 82550; 82553; 82728; 82803; 82962; 83540; 83550; 83605; 83615; 83735; 83835; 83880; 84100; 84436; 84443; 84479; 84484; 85025; 85027; 85045; 85362; 85384; 85610; 85730; 86850; 86900; 86901; 86922; 86965; 87040; 87081; 87086; 87186; 93005; 93010; 93306-TC; 94002; 94640; 99285-25; G0480; P9017; P9019; P9034; P9038; P9058